=== PATIENT | male | born 1990 | race Caucasian/White ===

== ENCOUNTER 2021-12-12 19:06 | Emergency (ER) | payer OTHER ==
[2021-12-12 19:24] VITALS: BP 101/55; PULSE 90; RESP 18; TEMP 98.8; BMI 25.7
[2021-12-12] MEDS ORDERED: TOBRA 0.3%/DEXAMETH 0.1% OPHTHALMIC SUSP 2.5 ML BTL OD STA (19:27)
[2021-12-12] MEDS ORDERED: TOBRA 0.3%/DEXAMETH 0.1% OPHTHALMIC SUSP 2.5 ML BTL ONE (19:31)
== END 2021-12-12 19:38 | disposition home or self-care (01) ==
LOC: FER 19:06
DX: H10.31 Unspecified acute conjunctivitis, right eye (principal)
CPT/HCPCS: 99283-25